=== PATIENT | female | born 1985 | race Two or more races ===

== ENCOUNTER 2019-05-16 17:54 | Emergency (ER) | payer BC ==
[~2019-05-16] VITALS: Ht 167.6 cm; Wt 84.4 kg
--- NOTE | 2019-05-16 18:10 | NUR ---
WORSENING CHEST PAIN, PRESSURE SINCE YESTERDAY. FACIAL NUMBNESS, TODAY. PATIENT A/OX4, APPEARS TO BE EMOTIONAL. CHANGED INTO A GOWN, ATTACHED TO THE TELEPHONE STERILIZER. NEEDS ATTENDED.
--- NOTE | 2019-05-16 18:15 | NUR ---
EMT TECH AT BEDSIDE FOR EKG.
[2019-05-16] MEDS ORDERED: IBUPROFEN 600 MG TABLET PO ONE ×2 (18:25→18:30)
[2019-05-16 18:28] LABS: BASOPHILS # (AUTO) 0.1 /CMM (0.0-0.2); EOSINOPHILS % (AUTO) 3.2 % (0.0-6.0); HEMATOCRIT 43 % (33-45); HEMOGLOBIN 14.8 g/dL (11.5-14.8); LYMPHOCYTES % (AUTO) 33.8 % (20.0-44.0); MEAN CORPUSCULAR HGB CONC 35 g/dl (31.0-36.0); MEAN CORPUSCULAR VOLUME 83 fL (82-100); MONOCYTES # (AUTO) 0.7 /CMM (0.1-1.30); MONOCYTES % (AUTO) 7.8 % (2.0-12.0); NEUTROPHILS # (AUTO) 4.8 /CMM (1.8-8.9); NEUTROPHILS % (AUTO) 54.2 % (43.0-81.0); PLATELET COUNT (AUTO) 280 /CMM (150-450); RED BLOOD CELL COUNT(AUTO) 5.15 MIL/uL (4.0-5.2); WHITE BLOOD COUNT (AUTO) 8.8 K/uL (4.3-11.0)
--- NOTE | 2019-05-16 18:28 | NUR ---
IC DESIGNER CUSTOM AT BEDSIDE FOR EVAL.
[2019-05-16 18:45] LABS: ALANINE AMINOTRANSFERASE 35 U/L (12-78); ALBUMIN 4.1 g/dL (3.4-5.0); ALKALINE PHOSPHATASE 75 U/L (46-116); ASPARTATE AMINOTRANSFERASE 19 U/L (15-37); BILIRUBIN,DIRECT 0.1 mg/dL (0.0-0.2); BILIRUBIN,TOTAL 0.5 mg/dL (0.2-1.0); CALCIUM, SERUM 9.5 mg/dL (8.5-10.1); CARBON DIOXIDE 26 mmol/L (21-32); CHLORIDE 102 mmol/L (98-107); CREATININE 0.8 mg/dL (0.6-1.3); GLUCOSE 106 mg/dL (74-106); POTASSIUM 3.4 mmol/L (3.5-5.1); SODIUM SERUM 138 mmol/L (136-145); UREA NITROGEN, BLOOD 8 mg/dL (7-18)
--- NOTE | 2019-05-16 19:21 | NUR ---
ENDORSED TO LARRY GORDON FOR RICK.
[2019-05-16] MEDS ORDERED: LIDOCAINE VISCOUS 2% UD 15 ML UDC ONE (19:37)
[2019-05-16] MEDS ORDERED: MAG HYDROX/AL HYDROX/SIMETH 30 ML UDC ONE (19:37)
[2019-05-16] MEDS ORDERED: MAG HYDROX/AL HYDROX/SIMETH 30 ML UDC PO ONE (20:00)
[2019-05-16] MEDS ORDERED: LIDOCAINE VISCOUS 2% UD 15 ML UDC MM ONE (20:00)
--- NOTE | 2019-05-16 20:24 | NUR ---
Patient discharged to home in stable condition. Written and verbal after care instructions given. Patient verbalizes understanding of instruction. Pt ambulatory with a steady gait
[2019-05-16 20:26] VITALS: BP 110/63
== END 2019-05-16 20:26 | disposition home or self-care (01) ==
LOC: ER 17:56
DX: R07.89 Other chest pain (principal); E11.9 Type 2 diabetes mellitus without complications
CPT/HCPCS: 36415; 71045-TC; 80048-TC; 80076-TC; 84484-TC; 84703-TC; 85025-TC